=== PATIENT | male | born 1995 | race Caucasian/White ===

== ENCOUNTER → 2016-11-09 | Outpatient (CLI) | payer OTHER ==
[~2016-11-09] MED LIST: GADOBUTROL 7.5 MMOL/7.5 ML VIAL INT ART ONE; IOHEXOL 300 MG/ML 50 ML VIAL. INT ART ONE; LIDOCAINE 1% Multi-Dose 20 ML VIAL. ID ONE
--- NOTE | 2016-11-09 14:14 | KCIC ---
Fluoroscopic guided right shoulder injection dated 11/09/2016: No comparison available. Clinical Indication: Gadolinium injection for MRI. Technical factors: The potential benefits and risks of the procedure were discussed with the patient and informed consent was obtained. The anterior right shoulder was prepped and draped in a sterile fashion. After local anesthesia, a 22-gauge spinal needle was inserted into the right shoulder joint using an anterior approach.Following negative aspiration, 15 cc's of a solution of 5cc Omnipaque contrast, 5 cc 1% lidocaine, 10 cc normal saline, and 0.1 cc gadolinium was injected without difficulty. The needle was then removed and a dry sterile dressing was applied. The patient was then sent to the MR suite for imaging. The patient tolerated the procedure well. 1.20 minutes fluoroscopic time used. One image. Findings: Single fluoroscopic image shows needle tip at the medial inferior 1/3 of the humeral head. Contrast material extends into the joint space. Impression: Fluoroscopic guided right shoulder injection for MRI as described above. Electronically signed by: Morgan Ogden MD (11/09/2016 2:11 PM) [id number]
--- NOTE | 2016-11-09 15:01 | KCIC ---
MR arthrogram right shoulder dated 11/09/2016 2:00 PM Indication: History of injury while using a drill 5 months ago. Pain , limited range of motion, possible AC joint injury Comparison: No comparison is available. Technique: Fat-saturated T1 weighted imaging performed in the coronal, axial and abduction external rotation planes following the intra-articular injection of dilute gadolinium. Injection portion of the study will be reported separately. In addition, standard T2-weighted imaging performed in 3 planes along with a nonfat saturated T1 sagittal sequence. Findings: Adequate distention of the joint space with contrast material. Glenoid labrum is intact. No apparent labral tear or para labral cyst. There is minimal blunting of the posterior superior labrum without evidence of communicating linear defect. Glenoid articular cartilage is intact. No loose body. Long head biceps tendon and biceps anchor are intact. Extra articular biceps tendon courses within the bicipital groove. Rotator cuff is intact. No significant increased signal in the cuff substance. No full-thickness tear or cuff retraction. Mild hypertrophic change at the AC joint. No significant undersurface spurring. No AC joint separation. There is minimal increased signal at the joint space. No significant subacromial/subdeltoid bursal fluid collection. The acromium is type II morphology. Bone marrow signal is homogeneous. Suprascapular and spinoglenoid notches are clear. No significant muscle edema or muscle atrophy. Increased signal within the anterior deltoid and subscapularis muscles, likely related to joint injection. IMPRESSION: 1. Blunted morphology and irregularity of the posterior superior labrum suggesting degenerative fraying or a small healing SLAP tear. No discrete communicating defect or perilabral cyst. 2. Mild AC joint arthropathy. No significant soft tissue edema or subluxation to suggest an acute AC separation injury. Electronically signed by: Morgan Ogden MD (11/09/2016 2:58 PM) [email or web address]
== END | disposition home or self-care (01) ==
LOC: KCIC 12:09
PROVIDERS: ATTEND Physical Medicine & Rehabilitation Pain Medicine
DX: S43.401A Unspecified sprain of right shoulder joint, initial encounter (principal); S49.91XA Unspecified injury of right shoulder and upper arm, initial encounter; M12.811 Other specific arthropathies, not elsewhere classified, right shoulder; X58.XXXA Exposure to other specified factors, initial encounter; Y93.89 Activity, other specified; Y92.89 Other specified places as the place of occurrence of the external cause; Y99.8 Other external cause status
CPT/HCPCS: 73040; 73222; A9585; Q9967